=== PATIENT | male | born 1965 | race Caucasian/White ===

== ENCOUNTER → 2024-10-03 15:22 | Outpatient (CLI) | payer OTHER, SELFPAY ==
--- NOTE | 2024-10-03 16:19 | DI.RAD.S_ITS ---
PROCEDURE: XR HIP W PEL IF DONE PRAVEEN MIN 4V INDICATIONS: BILAT HIP PAIN TECHNIQUE: AP pelvis with lateral view(s) of the both hip(s). COMPARISON: None. FINDINGS: Bones: Xogv-ix-jkgrherg bilateral hip arthrosis. No acute displaced fracture or dislocation. Soft tissues: No suspicious calcifications. IMPRESSION: No acute radiographic abnormality. Zfjv-fp-zwcnpapw bilateral hip arthrosis. If there is high concern for further derangement, consider MRI evaluation. Dictated by: Ameya Kirby M.D. on 10/04/2024 at 20:15 Approved by: Ameya Kirby M.D. on 10/04/2024 at 20:16
== END ==
PROVIDERS: PCP Family Medicine; Referring Provider Family Medicine; Visit Provider Family Medicine
DX: M25.551 Pain in right hip (principal); M25.552 Pain in left hip
CPT/HCPCS: 73522

== ENCOUNTER → 2024-10-06 10:27 | Outpatient (CLI) | payer OTHER, SELFPAY ==
--- NOTE | 2024-10-06 10:32 | DI.RAD.S_ITS ---
PROCEDURE: XR SACROILIAC JOINT MIN 3V INDICATIONS: chronic low back pain TECHNIQUE: 3 views of the sacroiliac joints were acquired. COMPARISON: None. FINDINGS: Bones: No bony erosions or ankylosis. No suspicious bony lesions. No fractures. Soft tissues: Overlying bowel gas pattern is normal. No suspicious soft tissue densities. IMPRESSION: No radiographic evidence of sacroiliitis. Dictated by: Lisbet Tristan M.D. on 10/06/2024 at 14:36 Approved by: Lisbet Tristan M.D. on 10/06/2024 at 14:36
--- NOTE | 2024-10-06 10:32 | DI.RAD.S_ITS ---
PROCEDURE: XR LUMBAR SPINE 2-3V INDICATIONS: chronic low back pain TECHNIQUE: 3 views of the lumbar spine were acquired. COMPARISON: None. FINDINGS: Bones: Five wid-deh-uzvodca vertebrae are present. Trace retrolisthesis L3-4 with moderate disc height loss and endplate spur formation. Moderate disc height loss at all levels. Facet arthropathy at the L5-S1 level. No vertebral body compression fractures. No suspicious bony lesions. Soft tissues: Overlying bowel gas pattern is normal. No suspicious soft tissue calcifications. IMPRESSION: Multilevel spondylosis. Trace spondylolisthesis L3-4. Dictated by: Lisbet Tristan M.D. on 10/06/2024 at 14:35 Approved by: Lisbet Tristan M.D. on 10/06/2024 at 14:36
== END ==
PROVIDERS: PCP Family Medicine; Referring Provider Family Medicine; Visit Provider Family Medicine
DX: M47.817 Spondylosis without myelopathy or radiculopathy, lumbosacral region (principal); M54.50 Low back pain, unspecified; G89.29 Other chronic pain
CPT/HCPCS: 72100; 72202

== ENCOUNTER → 2024-10-27 14:57 | Outpatient (CLI) | payer OTHER, SELFPAY ==
--- NOTE | 2024-10-27 | DI.MRI.S_ITS ---
PROCEDURE: MR LUMBAR SPINE WO CON INDICATIONS: low back pain TECHNIQUE: Noncontrast sagittal T1 spin echo and T2 fast echo, sagittal STIR, and T2 fast spin echo through the lumbar spine. In cases with scoliosis, additional coronal T2 fast spin echo may be performed. COMPARISON: [facility], CR, XR LUMBAR SPINE 2-3V, 10/06/2024, 10:33. FINDINGS: Image quality: Diagnostic Alignment and Curvature: There is normal bony alignment. Bone Marrow: No acute fracture. Scattered mild Modic changes. No acute edema Spinal Cord: Cauda equina nerve roots appear unremarkable. Paraspinous Soft Tissues: No paravertebral fluid collection. T12-L1: No stenosis L1-L2: Small diffuse disc bulge. Mild facet arthropathy. No stenosis. L2-L3: Small diffuse disc bulge. Facet arthropathy is present. Mild bilateral subarticular recess narrowing. No neural foraminal stenosis. Ligamentum hypertrophy. L3-L4: Lqog-bc-savkcroj diffuse disc bulge. Moderate facet arthropathy. Moderate right and txpg-sy-ylehwnme left narrowing of the subarticular recesses. Mild central narrowing. Ligamentum hypertrophy. Mild bilateral neural foraminal narrowing. L4-L5: Small central disc protrusion which is superimposed disc bulge. Moderate bilateral facet arthropathy. Mild narrowing of the bilateral subarticular recesses. Vsdr-zr-rpxsxdyv left and right neural foraminal narrowing. L5-S1: Central disc protrusion. Xkga-am-qqqaytbp facet arthropathy. IMPRESSION: Ftdi-ec-sxgjmuap spondylotic changes described above. The worst levels are L3-L4 and L4-L5. Dictated by: Ameya Kirby M.D. on 10/27/2024 at 17:00 Approved by: Ameya Kirby M.D. on 10/27/2024 at 17:04
== END ==
PROVIDERS: PCP Family Medicine; Referring Provider Orthopaedic Surgery; Visit Provider Orthopaedic Surgery
DX: M51.369 Other intervertebral disc degeneration, lumbar region without mention of lumbar back pain or lower extremity pain (principal); M51.26 Other intervertebral disc displacement, lumbar region; M48.061 Spinal stenosis, lumbar region without neurogenic claudication; M47.816 Spondylosis without myelopathy or radiculopathy, lumbar region; M51.27 Other intervertebral disc displacement, lumbosacral region; M47.817 Spondylosis without myelopathy or radiculopathy, lumbosacral region; M53.3 Sacrococcygeal disorders, not elsewhere classified
CPT/HCPCS: 72148